=== PATIENT | female | born 1970 | race Caucasian/White ===

== ENCOUNTER 2021-09-10 09:19 | Outpatient (REF) | payer BC, SELFPAY ==
--- NOTE | ~2021-09-10 | XR_ITS ---
EXAMINATION: XR HAND, RIGHT XR HAND, LEFT CLINICAL INFORMATION: Pain in both hands. COMPARISON: None TECHNIQUE: 3 views of each hand FINDINGS: Right hand: No fracture or dislocation. Alignment is anatomic. There is diffuse osteophyte formation throughout the interphalangeal joints as well as at the first metacarpophalangeal joint. Joint space narrowing of the first metacarpophalangeal joint. Moderate degenerative change of the first carpometacarpal joint with narrowing and osteophytes. The soft tissues are unremarkable. No osseous erosions. Left hand: No fracture or dislocation. Alignment is anatomic. Diffuse small osteophytes throughout the interphalangeal joints. Moderate degenerative change of the first carpometacarpal joint. There is narrowing of the joint space with osteophytes. The soft tissues are unremarkable. XR/XR hand LT 2V IMPRESSION: Mild degenerative change throughout both hands at the interphalangeal joints. Moderate degenerative changes bilaterally of the first carpometacarpal joints.
--- NOTE | ~2021-09-10 | XR_ITS ---
EXAMINATION: XR HAND, RIGHT XR HAND, LEFT CLINICAL INFORMATION: Pain in both hands. COMPARISON: None TECHNIQUE: 3 views of each hand FINDINGS: Right hand: No fracture or dislocation. Alignment is anatomic. There is diffuse osteophyte formation throughout the interphalangeal joints as well as at the first metacarpophalangeal joint. Joint space narrowing of the first metacarpophalangeal joint. Moderate degenerative change of the first carpometacarpal joint with narrowing and osteophytes. The soft tissues are unremarkable. No osseous erosions. Left hand: No fracture or dislocation. Alignment is anatomic. Diffuse small osteophytes throughout the interphalangeal joints. Moderate degenerative change of the first carpometacarpal joint. There is narrowing of the joint space with osteophytes. The soft tissues are unremarkable. XR/XR hand RT 2V IMPRESSION: Mild degenerative change throughout both hands at the interphalangeal joints. Moderate degenerative changes bilaterally of the first carpometacarpal joints.
[2021-09-10 11:35] LABS: MANUAL DIFF FLAG NO
[2021-09-10 12:13] LABS: Basophils Absolute Auto 0.1 X10*3/uL (0.0-0.2); Basophils Percent Auto 0.6 % (0-2); Eosinophils Absolute Auto 0.1 X10*3/uL (0.0-0.4); Eosinophils Percent Auto 1.4 % (0-4); Hematocrit 40.9 % (37.0-47.0); Hemoglobin 13.6 g/dl (12.0-16.0); Imm Gran Abs Auto 0.02 X10*3/uL (0.00-0.03); Imm Gran Pct Auto 0.2 % (0.0-0.4); Lymphocytes Absolute Auto 2.3 X10*3/uL (1.2-4.9); Lymphocytes Percent Auto 27.1 % (20-40); Mean Corpuscular HGB Conc 33.3 g/dl (31.0-35.0); Mean Corpuscular Hemoglobin 29.9 pg (27.0-33.0); Mean Corpuscular Volume 89.9 fL (80.0-98.0); Mean Platelet Volume 9.5 fL (9.4-12.3); Monocytes Absolute Auto 0.5 X10*3/uL (0.1-1.2); Monocytes Percent Auto 5.4 % (2-11); Neutrophils Absolute Auto 5.4 x10*3/uL (2.0-8.3); Neutrophils Percent Auto 65.3 % (45-73); Platelet Count 291 X10*3/uL (160-400); Red Blood Count 4.55 X10*6/uL (4.20-5.50); Red Cell Distribution Width 12.6 % (11.0-16.0); White Blood Count 8.3 X10*3/uL (4.8-10.8)
[2021-09-10 12:50] LABS: Erythrocyte Sedimentation Rate 8 MM/HR (0-20)
[2021-09-10 13:11] LABS: C Reactive Protein 0.46 mg/dL (< or = 0.50)
[2021-09-10 13:39] LABS: Rheumatoid Factor < 15.0 IU/mL (<15.0)
[2021-09-12 13:46] LABS: Anti Nuclear Antibody Screen NEGATIVE (NEGATIVE)
[2021-09-12 22:21] LABS: Cyclic Citrullinated Peptide <16 UNITS
== END 2021-09-10 09:20 | disposition home or self-care (01) ==
LOC: HO.XRAY 09:19
PROVIDERS: PCP Family Medicine; Visit Provider Internal Medicine Rheumatology
DX: M25.50 Pain in unspecified joint (principal); M25.561 Pain in right knee; M79.643 Pain in unspecified hand; M54.50 Low back pain, unspecified; G89.29 Other chronic pain; M79.7 Fibromyalgia; M70.61 Trochanteric bursitis, right hip; Z79.899 Other long term (current) drug therapy; Z78.0 Asymptomatic menopausal state
CPT/HCPCS: 36415; 73120; 85025; 85652; 86038; 86039; 86140; 86200; 86431